=== PATIENT | female | born 1980 | race African-American/Black ===

== ENCOUNTER 2016-11-15 05:50 | Inpatient (IN) | payer OTHER ==
[2016-11-15 07:55] VITALS: BMI 38.0
[2016-11-15] MEDS ORDERED: LACTATED RINGERS SOLUTION 1,000 ML IV SCH (08:45)
[2016-11-15] MEDS ORDERED: BUTORPHANOL TARTRATE 1 MG/ML VIAL IVPB ONE ×2 (08:45→10:00)
[2016-11-15 08:58] LABS: BASOPHIL 0.3 % (0-2.0); EOSINOPHIL 0.1 % (0-4.5); MCH 29.7 pg (25.7-33.7); MCHC 33.2 g/dl (32.0-36.0); MEAN CELL VOLUME 89.4 fl (80-96); MEAN PLT VOLUME 9.2 fl (7.5-11.1); PLATELET COUNT 191 K/MM3 (134-434); RDW 12.6 % (11.6-15.6); WHITE BLOOD COUNT 6.4 K/mm3 (4.0-10.0)
[2016-11-15 09:17] LABS: CALCIUM 9.1 mg/dL (8.5-10.1); COCKROFT - GAULT 178.313; CREATININE 0.7 mg/dL (0.55-1.02)
[2016-11-15 09:23] LABS: INR 0.92 (0.82-1.09); PROTHROMBIN TIME (PATIENT) 10.1 SEC (9.98-11.88)
[2016-11-15 09:25] LABS: ACTIVATED PTT 28.1 SECONDS (26.9-34.4)
[2016-11-15] MEDS ORDERED: TUBERCULIN PPD 5 TU/0.1ML SYRINGE (IN PATIENT USE ONLY) ID ONE (10:00)
[2016-11-15] MEDS ORDERED: BENZOCAINE 28 GM HEMORRHOIDAL OINTMENT TP PRN (11:14)
[2016-11-15] MEDS ORDERED: BISACODYL 10 MG SUPP.RECT RC PRN (11:14)
[2016-11-15] MEDS ORDERED: IBUPROFEN 600 MG TABLET (FP) PO PRN (11:14)
[2016-11-15] MEDS ORDERED: oxyCODONE HCL 5 MG TABLET PO PRN (11:14)
[2016-11-15] MEDS ORDERED: METHYLERGONOVINE MALEATE 0.2 MG/1 ML AMP IM PRN (11:14)
[2016-11-15] MEDS ORDERED: ACETAMINOPHEN 325 MG TABLET (FP) PO PRN (11:14)
[2016-11-15] MEDS ORDERED: WITCH HAZEL 50% (TUCKS) 40 PAD/JAR PAD TP PRN (11:14)
[2016-11-15] MEDS ORDERED: BENZOCAINE 20% 57 GM BOTTLE TP PRN (11:14)
[2016-11-15] MEDS ORDERED: ELECTROLYTE-148 SOLN 1,000 ML IV SCH (11:15)
[2016-11-15] MEDS ORDERED: OXYTOCIN 20 UNITS in 0.9% NS 1,000 ML IV SCH (11:15)
--- NOTE | 2016-11-15 11:21 | HP ---
Past Medical History - Primary Care Physician PCP:: Valarie Saenz - Admission Chief Complaint: Labor History of Present Illness: 36 yo Spont Ab x 4 edc 11/21/16 ega 39.1 week admitted in labor with Hx of gestational Dm, poor Ob hx lost, Hx of fibroids no ROM bleeding RUQ pain or [place] History Source: Patient - Past Medical History Reproductive: Yes: Fibroids ...: 4 ...Para: 0 ...Term: 0 ...: 0 ...Spon : 3 ...Induced : 0 ...LMP: 02/15/16 ... Weeks Gestation by Dates: 39.1 ...EDC by Dates: 11/21/16 ...EDC by Sono: 11/21/16 Additional OB History: gestational DM. fibroids. seen by MFM - Past Surgical History Past Surgical History: Yes: None Hx Myomectomy: No Hx Transabdominal Cerclage: No - Smoking History Smoking history: Never smoked Have you smoked in the past 12 months: No - Alcohol/Substance Use Hx Alcohol Use: No History of Substance Use: reports: None - Social History Usual Living Arrangement: Yes: With Spouse History of Recent Travel: No Home Medications - Allergies Allergies/Adverse Reactions: Allergies Allergy/AdvReac Type Severity Reaction Status Date / Time No Known Allergies Allergy Verified 11/15/16 06:47 - Home Medications Home Medications: Ambulatory Orders Aspirin [ASA -] 81 mg PO DAILY 11/15/16 Iron 1 tab PO DAILY 11/15/16 Tablet 1 tab PO DAILY 11/15/16 Review of Systems - Review of Systems Constitutional: reports: No Symptoms Eyes: reports: No Symptoms HENT: reports: No Symptoms Neck: reports: No Symptoms Cardiovascular: reports: No Symptoms Respiratory: reports: No Symptoms Gastrointestinal: reports: No Symptoms Genitourinary: reports: No Symptoms Breasts: reports: No Symptoms Reported Musculoskeletal: reports: No Symptoms Integumentary: reports: No Symptoms Neurological: reports: No Symptoms Endocrine: reports: No Symptoms Hematology/Lymphatic: reports: No Symptoms Psychiatric: reports: No Symptoms Physical Exam - Maternity Vital Signs: Vital Signs Temperature 97.7 F 11/15/16 10:00 Pulse Rate 66 11/15/16 10:00 Respiratory Rate 20 11/15/16 10:00 Blood Pressure 140/70 11/15/16 10:00 O2 Sat by Pulse Oximetry (%) Constitutional: Yes: Well Nourished, No Distress Neck: Yes: WNL Cardiovascular: Yes: WNL, Regular Rate and Rhythm Lungs: Clear to auscultation - Abdominal Exam/OB Fundal Height: 40 Number of Fetuses: Single Presentation: Vertex Contractions: Yes Regularity: Regular Monitor Mode: External Category: I Accelerations: Non-Uniform Decelerations: None - Vaginal Exam/OB Dilatation (cm): rim Effacement (%): 100 Amniotic Membrane Status: Ruptured Amniotic Fluid: Yes: Meconium Stained Presentation: Vertex/Position - Physical Exam Musculoskeletal: Yes: WNL Extremities: Yes: WNL Edema: No Integumentary: Yes: WNL Psychiatric: Yes: WNL, Alert, Oriented - Labs Lab Results: CBC, BMP 11/15/16 08:50 11/15/16 08:50 Problem List - Problems (1) Gestational diabetes Code(s): O24.419 - GESTATIONAL DIABETES MELLITUS IN , UNSP CONTROL (2) Elderly primigravida in third trimester Code(s): O09.513 - SUPERVISION OF ELDERLY PRIMIGRAVIDA, THIRD TRIMESTER (3) Prior poor obstetrical history in third trimester, antepartum Code(s): O09.293 - SUPRVSN OF PREG W POOR REPRODCTV OR OBSTET HX, THIRD TRI Assessment/Plan IUP at 39.1 week AROm moderate mec elderly primigravida poor OB hx Hx fibroids Plan Anticipate vaginal delivery
[2016-11-15 13:22] LABS: ARTERIAL BLD GAS O2 SATURATION 84.7 % (90-98.9); ARTERIAL BLOOD GAS BASE EXCESS -5.4 meq/l (-2-2); ARTERIAL BLOOD GAS HCO3 19.2 meq/L (22-26); ARTERIAL BLOOD GAS pH 7.34 (7.35-7.45)
[2016-11-15 13:24] LABS: PT. ON O2? NO
[2016-11-15 13:25] LABS: ARTERIAL BLOOD GAS PO2 43.3 mmHg (80-100)
--- NOTE | 2016-11-15 23:10 | PN ---
Delivery - Delivery Type of Anesthesia: Local Episiotomy/Laceration: 1st degree EBL (cc): 350 Delivery, Single - Stages of Labor Date 1st Stage Initiatied: 11/15/16 Time 1st Stage Initiated: 03:00 Date 2nd Stage Initiated: 11/15/16 Time 2nd Stage Initiated: 11:45 Date of Delivery: 11/15/16 Time of Delivery: 12:07 Time Placenta Delivered: 12:10 Placenta: Yes: Spontaneous - Condition of Numerical Control Machine Operator/Substance Abuse Counselor Present: No Gender: Female Weight: 6 lb 12 oz Position: Left, OA - 1 Minute Total Score: 9 5 Minutes Total Score: 9 - [place] Feeding Plan Initial Plan: Elected not to breastfeed exclusively throughout hospitalization
[2016-11-16 08:12] LABS: BASOPHIL 0.4 % (0-2.0); EOSINOPHIL 0.3 % (0-4.5); MCHC 33.3 g/dl (32.0-36.0); MEAN CELL VOLUME 90.2 fl (80-96); MEAN PLT VOLUME 9.2 fl (7.5-11.1); PLATELET COUNT 158 K/MM3 (134-434); RDW 12.2 % (11.6-15.6); WHITE BLOOD COUNT 8.9 K/mm3 (4.0-10.0)
--- NOTE | 2016-11-16 10:19 | DS ---
Physical Exam-SQL REPORT WRITER Vital Signs: Vital Signs Temperature 98.3 F 11/16/16 07:30 Pulse Rate 64 11/16/16 07:30 Respiratory Rate 20 11/16/16 07:30 Blood Pressure 122/88 11/16/16 07:30 O2 Sat by Pulse Oximetry (%) Constitutional: Yes: Well Nourished, No Distress Labs: CBC, BMP 11/16/16 07:00 11/15/16 08:50 Delivery - Delivery Type of Anesthesia: Local Episiotomy/Laceration: 1st degree EBL (cc): 350 Delivery, Single - Stages of Labor Date 1st Stage Initiatied: 11/15/16 Time 1st Stage Initiated: 03:00 Date 2nd Stage Initiated: 11/15/16 Time 2nd Stage Initiated: 11:45 Date of Delivery: 11/15/16 Time of Delivery: 12:07 Time Placenta Delivered: 12:10 Placenta: Yes: Spontaneous - Condition of Infant Motor Patrol Operator/Telephone Engineer Present: No Infant Gender: Female Weight: 6 lb 12 oz Position: Left, OA - 1 Minute Total Score: 9 5 Minutes Total Score: 9 - [place] Feeding Plan Initial Plan: Elected not to breastfeed exclusively throughout hospitalization Discharge Summary Reason For Visit: LABOR ADMIT Current Active Problems Elderly primigravida in third trimester (Acute) Gestational diabetes (Acute) Prior poor obstetrical history in third trimester, antepartum (Acute) - Home Medications Comprehensive Discharge Medication List: Ambulatory Orders Aspirin [ASA -] 81 mg PO DAILY 11/15/16 Iron 1 tab PO DAILY 11/15/16 Tablet 1 tab PO DAILY 11/15/16
--- NOTE | 2016-11-16 10:28 | PN ---
Post Note - Post Date of Delivery: 11/15/16 Post Day: 1 Vital Signs: Vital Signs - 24 hr 11/15/16 11/15/16 11/15/16 11:00 12:15 12:30 Temperature Pulse Rate 68 61 68 Respiratory 20 20 20 Rate Blood Pressure 129/85 128/72 118/78 11/15/16 11/15/16 11/15/16 12:45 13:00 14:00 Temperature 98.5 F 98.7 F Pulse Rate 70 72 74 Respiratory 20 20 20 Rate Blood Pressure 125/76 128/76 133/83 11/15/16 11/15/16 11/16/16 18:00 22:00 01:03 Temperature 98.3 F 98.7 F 98.6 F Pulse Rate 67 74 84 Respiratory 20 20 18 Rate Blood Pressure 134/88 129/79 118/68 11/16/16 11/16/16 05:51 07:30 Temperature 98 F 98.3 F Pulse Rate 85 64 Respiratory 18 20 Rate Blood Pressure 135/71 122/88 Labs: Laboratory Results - last 24 hr 11/15/16 11/15/16 11/15/16 08:50 08:50 13:20 WBC RBC Hgb Hct MCV MCHC RDW Plt Count MPV Neutrophils % Lymphocytes % Monocytes % Eosinophils % Basophils % Puncture Site Md puncture ABG pH 7.34 L ABG pCO2 at Pt Temp 36.6 ABG pO2 at Pt Temp 43.3 L* ABG HCO3 19.2 L ABG O2 Sat (Measured) 84.7 L ABG O2 Content 14.2 L ABG Base Excess -5.4 L David Test Not applicable Oxygen Flow Rate No PEEP 0.0 RPR Titer Nonreactive Blood Type O NEGATIVE Antibody Screen Positive H Antibody Identification No Result Required. Screen Baby's Blood Type Unit Expiration Date 11/15/16 11/16/16 14:55 07:00 WBC 8.9 D RBC 3.20 L Hgb 9.6 L D Hct 28.9 L D MCV 90.2 MCHC 33.3 RDW 12.2 Plt Count 158 MPV 9.2 Neutrophils % 70.0 Lymphocytes % 21.6 Monocytes % 7.7 Eosinophils % 0.3 D Basophils % 0.4 Puncture Site ABG pH ABG pCO2 at Pt Temp ABG pO2 at Pt Temp ABG HCO3 ABG O2 Sat (Measured) ABG O2 Content ABG Base Excess David Test Oxygen Flow Rate PEEP RPR Titer Blood Type Antibody Screen Antibody Identification Screen Negative Baby's Blood Type B positive Unit Expiration Date [id number] - Subjective Subjective: No Complaints - Objective Afebrile: Yes Breast: Not engorged Abdomen: Soft, Non-tender Uterus: Fundus firm, Non-tender Vagina: Scant lochia Extremities: Non-tender - Assessment/Plan (1) Gestational diabetes Assessment: S/P Normal Plan: Routine Care (2) Elderly primigravida in third trimester Assessment: S/P Normal Plan: Routine Care (3) Prior poor obstetrical history in third trimester, antepartum Assessment: S/P Normal Plan: Routine Care
[2016-11-16] MEDS ORDERED: SENNOSIDES/DOCUSATE COMBO (SENNA PLUS) TABLET (UD) PO PRN (22:00)
[2016-11-17 10:37] VITALS: BP 135/81; PULSE 72; TEMP 98.7
== END 2016-11-17 12:30 | disposition home or self-care (01) | DRG 775 ==
LOC: JDEL 05:50 → JLDR 07:20 → J3W 14:00
PROVIDERS: ADMIT Obstetrics & Gynecology; ATTEND Obstetrics & Gynecology
PROC: 0HQ9XZZ Repair Perineum Skin, External Approach (ICD-10-PCS; principal; 2016-11-15)
PROC: 10E0XZZ Delivery of Products of Conception, External Approach (ICD-10-PCS; 2016-11-15)
PROC: 0W8NXZZ Division of Female Perineum, External Approach (ICD-10-PCS; 2016-11-15)
PROC: 3E0334Z Introduction of Serum, Toxoid and Vaccine into Peripheral Vein, Percutaneous Approach (ICD-10-PCS; 2016-11-16)
DX: O70.0 First degree perineal laceration during delivery (principal); O24.429 Gestational diabetes mellitus in childbirth, unspecified control; O09.513 Supervision of elderly primigravida, third trimester; Z3A.39 39 weeks gestation of pregnancy; O26.893 Other specified pregnancy related conditions, third trimester; Z67.91 Unspecified blood type, Rh negative; Z37.0 Single live birth
CPT/HCPCS: 36415; 36600; 59025; 59409; 80048; 82803; 85025; 85461; 85610; 85730; 86593; 86850; 86870; 86900; 86901; 86902; 86999

== ENCOUNTER 2018-06-07 21:10 | Inpatient (IN) | payer OTHER ==
[2018-06-07 21:32] LABS: BASO % 0.7 % (0-2.0); EOS % 0.3 % (0-4.5); HEMATOCRIT 35.6 % (32.4-45.2); HEMOGLOBIN 12.2 GM/dL (10.7-15.3); LYMPH % 35.5 % (8-40); MCHC 34.3 g/dl (32.0-36.0); MEAN CELL VOLUME 87.3 fl (80-96); MEAN PLT VOLUME 9.5 fl (7.5-11.1); MONO % 9.3 % (3.8-10.2); NEUT % 54.2 % (42.8-82.8); PLATELET COUNT 231 K/MM3 (134-434); RBC 4.07 M/mm3 (3.60-5.2); RDW 13.1 % (11.6-15.6); WHITE BLOOD COUNT 9.2 K/mm3 (4.0-10.0)
[2018-06-07] MEDS ORDERED: PROMETHAZINE HCL 25 MG/1 ML VIAL IVPUSH ONE (21:44)
[2018-06-07] MEDS ORDERED: BUTORPHANOL TARTRATE 1 MG/ML VIAL IVPB ONE (21:44)
[2018-06-07] MEDS ORDERED: ELECTROLYTE-148 SOLN 1,000 ML IV SCH (21:45)
[2018-06-07 21:46] LABS: INR 0.87 (0.83-1.09); PROTHROMBIN TIME (PATIENT) 10.3 SEC (9.7-13.0)
[2018-06-07 21:48] LABS: ACTIVATED PTT 24.7 SECONDS (25.2-36.5)
[2018-06-07 21:55] LABS: ANION GAP 10 MMOL/L (8-16); BLOOD UREA NITROGEN 12 mg/dL (7-18); CALCIUM 8.9 mg/dL (8.5-10.1); CHLORIDE 106 mmol/L (98-107); CO2 21 mmol/L (21-32); CREATININE 0.9 mg/dL (0.55-1.3); GLUCOSE,RANDOM 116 mg/dL (74-106); POTASSIUM 3.6 mmol/L (3.5-5.1); SODIUM 137 mmol/L (136-145)
[2018-06-07] MEDS ORDERED: OXYTOCIN 20 UNITS in 0.9% NS 20 UNIT/1,000 ML INFUS.BAG IV ONE (21:55)
[2018-06-07] MEDS ORDERED: DINOPROSTONE 10 MG VAGINAL SUPPOSITORY VG ONE (21:59)
--- NOTE | 2018-06-07 22:05 | HP ---
Past Medical History - Primary Care Physician PCP:: Valarie Saenz - Admission Chief Complaint: Labor History Source: Patient Limitations to Obtaining History: No Limitations - Past Medical History ...: 5 ...Para: 1 - Past Surgical History Past Surgical History: Yes: None Hx Myomectomy: No Hx Transabdominal Cerclage: No - Smoking History Smoking history: Never smoked Have you smoked in the past 12 months: No - Alcohol/Substance Use Hx Alcohol Use: No History of Substance Use: reports: None - Social History History of Recent Travel: No Home Medications - Allergies Allergies/Adverse Reactions: Allergies Allergy/AdvReac Type Severity Reaction Status Date / Time No Known Allergies Allergy Verified 11/15/16 06:47 - Home Medications Home Medications: Ambulatory Orders Aspirin [ASA -] 81 mg PO DAILY 11/15/16 Iron 1 tab PO DAILY 11/15/16 Tablet 1 tab PO DAILY 11/15/16 Ibuprofen [Motrin -] 600 mg PO QID PRN #28 tablet 11/16/16 Review of Systems - Review of Systems Constitutional: reports: No Symptoms Eyes: reports: No Symptoms HENT: reports: No Symptoms Neck: reports: No Symptoms Cardiovascular: reports: No Symptoms Respiratory: reports: No Symptoms Gastrointestinal: reports: Abdominal Pain Genitourinary: reports: No Symptoms Breasts: reports: No Symptoms Reported Musculoskeletal: reports: No Symptoms Integumentary: reports: No Symptoms Neurological: reports: No Symptoms Endocrine: reports: No Symptoms Hematology/Lymphatic: reports: No Symptoms Psychiatric: reports: No Symptoms Physical Exam - Maternity Constitutional: Yes: Well Nourished, No Distress, Obese Cardiovascular: Yes: WNL, Regular Rate and Rhythm Lungs: Clear to auscultation Breast(s): Yes: WNL - Abdominal Exam/OB Fundal Height: 38 Number of Fetuses: Single Presentation: Vertex Contractions: Yes Regularity: Regular Monitor Mode: External Heart Rate Location: [facility] Category: I Accelerations: Non-Uniform Decelerations: None - Vaginal Exam/OB Dilatation (cm): 9 Effacement (%): 100 Amniotic Membrane Status: Ruptured Amniotic Fluid: Yes: Clear Presentation: Vertex/Position - Physical Exam Musculoskeletal: Yes: WNL Extremities: Yes: WNL Edema: No Psychiatric: Yes: WNL, Alert, Oriented - Labs Lab Results: CBC, BMP 06/07/18 21:20 06/07/18 21:20 Hemorrhage Risk Assessment - Risk Factors Risk Score: 1 Risk Level: Medium Risk Problem List - Problems (1) Labor established Code(s): [id number] - (2) Marginal placenta previa Code(s): O44.20 - PARTIAL PLACENTA PREVIA NOS OR WITHOUT HEMOR, UNSP TRIMESTER Assessment/Plan IUP at 37 week Labor Plan anticipate vaginal delivery
[2018-06-07] MEDS ORDERED: BISACODYL 10 MG SUPP.RECT RC PRN (22:06)
[2018-06-07] MEDS ORDERED: METHYLERGONOVINE MALEATE 0.2 MG/1 ML AMP IM PRN (22:06)
[2018-06-07] MEDS ORDERED: WITCH HAZEL 50% (TUCKS) 40 PAD/JAR PAD TP PRN (22:06)
[2018-06-07] MEDS ORDERED: ACETAMINOPHEN 325 MG TABLET (FP) PO PRN (22:06)
[2018-06-07] MEDS ORDERED: OXYTOCIN 20 UNITS in 0.9% NS 20 UNIT/1,000 ML INFUS.BAG IV SCH (22:15)
--- NOTE | 2018-06-07 22:15 | PN ---
Delivery - Delivery Vaginal Delivery: No Problems (head delivered in LOT position withintact perineum shoulders delivered without comp delayed cord clamping father cut cord cord PH and cord blood obtained) Type of Anesthesia: None Episiotomy/Laceration: None EBL (cc): 300 Delivery, Single - Stages of Labor Placenta: Yes: Spontaneous - Condition of Materials Handling Coordinator/Nurses' Association Executive Director Present: No Gender: Female Position: OT
[2018-06-07 22:30] LABS: ARTERIAL BLOOD GAS BASE EXCESS -5.3 meq/l (-2-2); ARTERIAL BLOOD GAS PCO2 47.6 mmHg (35-45); ARTERIAL BLOOD GAS pH 7.28 (7.35-7.45)
[2018-06-07 22:32] LABS: VENOUS PC02 47.2 mmHg (38-52); VENOUS PH 7.28 (7.32-7.42)
[2018-06-07 22:36] LABS: ARTERIAL BLOOD GAS PO2 29.4 mmHg (80-100)
[2018-06-07 22:37] LABS: ARTERIAL BLD GAS O2 SATURATION 65.4 % (90-98.9)
[2018-06-07 23:38] VITALS: BMI 38.7
[2018-06-08] MEDS ORDERED: LABETALOL HCL 200 MG TABLET (FP) PO ONE (00:01)
[2018-06-08] MEDS ORDERED: RHO(D) IMMUNE GLOBULIN 1,500 UNIT DISP.SYRIN IM ONE ×2 (00:05→00:10)
[2018-06-08 00:37] LABS: RETICULOCYTES 2.17 % (0.5-1.5)
[2018-06-08] MEDS: IBUPROFEN 600 MG TABLET (FP) PO PRN (01:18)
[2018-06-08] MEDS: BENZOCAINE 28 GM HEMORRHOIDAL OINTMENT TP PRN (03:00)
[2018-06-08] MEDS: BENZOCAINE 20% 57 GM BOTTLE TP PRN (03:01)
[2018-06-08 07:46] LABS: BASO % 0.3 % (0-2.0); EOS % 0.1 % (0-4.5); HEMATOCRIT 32.8 % (32.4-45.2); HEMOGLOBIN 10.4 GM/dL (10.7-15.3); LYMPH % 13.1 % (8-40); MCH 28.3 pg (25.7-33.7); MCHC 31.7 g/dl (32.0-36.0); MEAN CELL VOLUME 89.2 fl (80-96); NEUT % 77.5 % (42.8-82.8); PLATELET COUNT 177 K/MM3 (134-434); RBC 3.67 M/mm3 (3.60-5.2); RDW 13.2 % (11.6-15.6); WHITE BLOOD COUNT 11.2 K/mm3 (4.0-10.0)
[2018-06-08] MEDS ORDERED: TUBERCULIN PPD 5 TU/0.1ML SYRINGE (IN PATIENT USE ONLY) ID ONE (10:00)
[2018-06-08] MEDS: PRENATAL VITAMINS W/ FOLIC ACID TABLET (FP) PO SCH (10:15)
[2018-06-08] MEDS ORDERED: SENNOSIDES/DOCUSATE COMBO (SENNA PLUS) TABLET (UD) PO PRN (22:00)
[2018-06-09] MEDS: PRENATAL VITAMINS W/ FOLIC ACID TABLET (FP) PO SCH (10:56)
[2018-06-09 12:26] VITALS: BP 135/93; PULSE 67; TEMP 98.7
[2018-06-09] MEDS: IBUPROFEN 600 MG TABLET (FP) PO PRN (13:14)
[2018-06-09] MEDS: BENZOCAINE 20% 57 GM BOTTLE TP PRN (16:26)
[2018-06-09] MEDS: BENZOCAINE 28 GM HEMORRHOIDAL OINTMENT TP PRN (16:26)
== END 2018-06-09 17:18 | disposition home or self-care (01) | DRG 807 ==
LOC: JLDR 21:10 → J3W 06-08 01:02
PROVIDERS: ADMIT Obstetrics & Gynecology; ATTEND Obstetrics & Gynecology
PROC: 10E0XZZ Delivery of Products of Conception, External Approach (ICD-10-PCS; principal; 2018-06-07)
DX: O44.23 Partial placenta previa NOS or without hemorrhage, third trimester (principal); Z37.0 Single live birth; Z3A.37 37 weeks gestation of pregnancy
CPT/HCPCS: 36415; 36600; 59409; 80048; 82803; 82977; 83010; 84450; 84460; 84550; 85025; 85032; 85044; 85461; 85610; 85730; 86593; 86850; 86870; 86900; 86901; 86902; 86999; 87389